=== PATIENT | male | born 1940 | race Two or more races ===

== ENCOUNTER 2016-11-01 10:53 | Emergency (ER) | payer SELFPAY ==
[~2016-11-01] VITALS: Ht 152.4 cm; Wt 62.7 kg
[2016-11-01] MEDS ORDERED: ENALAPRILAT 2.5 MG/2 ML VIAL. IV ONE (11:30)
--- NOTE | 2016-11-01 12:04 | EKG ---
[facility] [address] [place] [address] Test Date: 2016-11-01 Test Time: 11:14:49 Pat Name: MARIAM MARX Department: Room: Gender: M Jack Spinner: : 1940 Requested By: KULWANT VIZCARRA Order Number: [id number] Reading MD: Courtney Gross Measurements Intervals [place] Rate: 76 P: 13 KS: 170 QRS: -17 QRSD: 98 T: 0 QT: 374 QTc: 425 Interpretive Statements SINUS RHYTHM LEFT ATRIAL ABNORMALITY LEFTWARD AXIS ABNORMAL ECG RI6.01 No previous ECG available for comparison Electronically Signed On 11-02-2016 9:43:37 [employer]ET PROTECTION REPRESENTATIVE by Courtney Gross
--- NOTE | 2016-11-01 12:13 | RAD ---
CT of the head without contrast, 11/01/2016: History: Headache, dizziness There is mild cerebral atrophy. The ventricles are within normal limits in size. There is no shift of the midline structures. There is no evidence of acute intracranial hemorrhage or mass effect. Minimal basal ganglia calcification is present. Additional small cortical calcifications are noted in the left parietal parasagittal region and in the right occipital lobe peripherally. These are nonspecific findings, but or most likely due to remote infection or trauma. There is opacification of the left mastoid air cells. The right mastoid sinus is clear. There is mild mucosal thickening in the right sphenoid sinus. IMPRESSION: 1. No acute intracranial abnormality is detected. 2. 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 3. Mild mucosal thickening in the right sphenoid sinus. PQRS Compliance Statement: One or more of the following individualized dose reduction techniques were utilized for this examination: 1. Automated exposure control 2. Adjustment of the mA and/or kV according to patient size 3. Use of iterative reconstruction technique
[2016-11-01] MEDS ORDERED: ACETAMINOPHEN 500 MG TABLET PO ONE (12:15)
--- NOTE | 2016-11-01 12:16 | PHYS DOC ---
Past Medical History Past Medical History: Hypertension Adult General Chief Complaint Chief Complaint: HEADACHE HPI HPI Patient is a 76 year old male who presents with headache and elevated blood pressure. Patient reports he has been having headache that he describes pressure -like for the past few days. This got worse last night. He also has some associated nausea. No numbness or weakness. No change in vision. He has not taken anything for the headache prior to coming to the ED. Of note, he ran out of his blood pressure medications about 1 month ago; noted to be hypertensive on arrival to ED. Review of Systems Review of Systems Constitutional: Denies fever or chills Eyes: Denies change in visual acuity or eye pain HENT: Denies nasal congestion or sore throat Respiratory: Denies cough or shortness of breath Cardiovascular: Denies chest pain GI: Nausea (none at this time). Denies abdominal pain, vomiting, bloody stools or diarrhea : Denies dysuria or hematuria Musculoskeletal: Denies back pain or joint pain Integument: Denies rash or skin lesions Neurologic: Pressure-like headache. Denies focal weakness or sensory changes Current Medications Current Medications Current Medications Medications (Trade) Dose Ordered Sig/Alicia Start Time Stop Time Status Last Admin Dose Admin Acetaminophen (Tylenol) 1,000 mg 1X ONCE 11/01/16 12:15 11/01/16 12:16 DC 11/01/16 12:57 1,000 MG Amlodipine Besylate (Norvasc) 5 mg 1X ONCE 11/01/16 13:00 11/01/16 13:03 DC 11/01/16 13:20 5 MG Enalaprilat (Vasotec) 2.5 mg 1X ONCE 11/01/16 11:30 11/01/16 11:43 DC 11/01/16 12:14 2.5 MG Losartan Potassium (Cozaar) 50 mg 1X ONCE 11/01/16 13:00 11/01/16 13:03 DC 11/01/16 13:21 50 MG Allergies Allergies Allergies Coded Allergies Type Severity Reaction Last Updated Verified No Known Drug Allergies 11/01/16 No Physical Exam Physical Exam Constitutional: Well developed, well nourished, no acute distress, non-toxic appearance. [] HENT: Normocephalic, atraumatic, bilateral external ears normal, oropharynx moist, no oral exudates, nose normal. [] Eyes: PERRLA, EOMI, conjunctiva normal, no discharge. [] Neck: Normal range of motion, no tenderness, supple, no stridor. [] Cardiovascular:Heart rate regular rhythm, no murmur [] Lungs & Thorax: Bilateral breath sounds clear to auscultation [] Abdomen: Bowel sounds normal, soft, no tenderness, no masses, no pulsatile masses. [] Skin: Warm, dry, no erythema, no rash. [] Back: No tenderness, no CVA tenderness. [] Extremities: No tenderness, no cyanosis, no clubbing, ROM intact, no edema. [] Neurologic: Alert and oriented X 3, normal motor function, normal sensory function, no focal deficits noted. [] Psychologic: Affect normal, judgement normal, mood normal. [] Current Patient Data Vital Signs Vital Signs Date Time Temp Pulse Resp B/P Pulse Ox O2 Delivery O2 Flow Rate FiO2 11/01/16 13:21 65 184/100 11/01/16 11:10 97.9 24 96 Room Air 97.9 Lab Values Laboratory Tests Test 11/01/16 12:02 Sodium Level 141mmol/L (136-145) Potassium Level 3.4mmol/L (3.5-5.1) L Chloride Level 105mmol/L (98-107) Carbon Dioxide Level 30mmol/L (21-32) Anion Gap 6 (6-14) Blood Urea Nitrogen 13mg/dL (8-26) Creatinine 0.9mg/dL (0.7-1.3) Estimated GFR (Cockcroft-Gault) 81.8 Glucose Level 190mg/dL (70-99) H Calcium Level 9.7mg/dL (8.5-10.1) Laboratory Tests 11/01/16 12:02 EKG EKG EKG (my read): sinus rhythm, rate 76, LAD, intervals wnl, no acute ischemic changes Radiology/Procedures Radiology/Procedures CT head: IMPRESSION: 1. No acute intracranial abnormality is detected. 2. 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 3. Mild mucosal thickening in the right sphenoid sinus. Course & Med Decision Making Course & Med Decision Making Pertinent Labs and Imaging studies reviewed. (See chart for details) Patient is 76-year-old male who presents with headache, hypertension. Suspect headache related to hypertension. Will obtain CT head, EKG, BNP screen for pathology resulting from elevated blood pressure. Dose of Vasotec ordered for blood pressure control, acetaminophen ordered for headache. Imaging results as above. EKG okay per my read. BMP unremarkable. Discussed results with patient and family. Patient reports headache better at this time. Dose of home blood pressure meds ordered. Will plan discharge with refill for blood pressure meds, instructions for follow-up with PCP, strict return precautions. Dragon Disclaimer Dragon Disclaimer This electronic medical record was generated, in whole or in part, using a voice recognition dictation system. Departure Departure Impression: Primary Impression: Hypertension Additional Impression: Headache Disposition: HOME, SELF-CARE Condition: IMPROVED Referrals: NO PCP (PCP) Patient Instructions: Hypertension Additional Instructions: Thank you for allowing us to provide care today in the Emergency Department. Take the provided medication as directed. Schedule a follow up appointment with your primary care doctor. Return promptly to the Emergency Department if you develop any new or concerning symptoms. Scripts Amlodipine Besylate 5 Mg Tablet5 Mg PO DAILY #30 TAB Prov:KULWANT VIZCARRA MD 11/01/16 Losartan Potassium 50 Mg Eoxgak85 Mg PO DAILY #30 TAB Prov:KULWANT VIZCARRA MD 11/01/16 Problem Qualifiers KULWANT VIZCARRA MD Nov 01, 2016 12:16
[2016-11-01 12:42] LABS: CALCIUM 9.7 mg/dL (8.5-10.1); CREATININE 0.9 mg/dL (0.7-1.3); GFR 81.8; POTASSIUM 3.4 mmol/L (3.5-5.1)
[2016-11-01] MEDS ORDERED: LOSARTAN POTASSIUM 50 MG TABLET. PO ONE (13:00)
[2016-11-01] MEDS ORDERED: AMLODIPINE BESYLATE 5 MG TABLET PO ONE (13:00)
[2016-11-01] MEDS ORDERED: LOSA50TA6 PO (13:02)
[2016-11-01] MEDS ORDERED: AMLO5TAB2 PO (13:02)
[2016-11-01 13:21] VITALS: BP 184/100
== END 2016-11-01 13:30 | disposition home or self-care (01) ==
LOC: ER 10:53
DX: I10 Essential (primary) hypertension (principal); R51 Headache
CPT/HCPCS: 36415; 70450; 80048; 93005; 96374; 99285-25

== ENCOUNTER 2016-11-02 16:38 | Emergency (ER) | payer SELFPAY ==
[2016-11-01 13:21] VITALS: BP 184/100
[~2016-11-02 16:38] MED LIST: AMLO5TAB2 PO; LOSA50TA6 PO
== END 2016-11-02 18:30 | disposition left against medical advice (07) ==
LOC: ER 16:38
DX: R51 Headache (principal); R03.0 Elevated blood-pressure reading, without diagnosis of hypertension; Z53.21 Procedure and treatment not carried out due to patient leaving prior to being seen by health care provider

== ENCOUNTER 2016-11-04 17:00 | Emergency (ER) | payer SELFPAY | END 2016-11-04 17:19 | disposition left against medical advice (07) | LOC: ER 17:00 | DX: R42 Dizziness and giddiness (principal); Z53.21 Procedure and treatment not carried out due to patient leaving prior to being seen by health care provider ==